=== PATIENT | male | born 1970 | race Caucasian/White ===

== ENCOUNTER 2025-07-28 10:43 | Emergency (ER) | payer OTHER ==
[~2025-07-28] VITALS: Ht 175.3 cm; Wt 90.7 kg
[~2025-07-28 10:43] MED LIST: ACETAMINOPHEN-1 EAC4 PO; AMOX TR-K CLV1 EAC2 PO; DAILY VITAMIN1 EAC4; DOXYCYCLINE HY100 MG PO; LEVOFLOXACIN750 MG PO; MAGNESIUM; METOPROLOL TART25 MG PO; NEURONTIN100 MG PO; POTASSIUM; PRILOSEC10 M1; TYLENOL325 MG PO; ULTRAM 50MG50 MG PO; [UNRECOGNIZED DRUG - OTHER]
[2025-07-28 11:25] VITALS: TEMP 98.7
[2025-07-28] MEDS ORDERED: Morphine 4mg INJECTION 4 MG/ML INJ IV ONE (15:00)
[2025-07-28 16:06] VITALS: PULSE 89; RESP 18
[2025-07-28] MEDS ORDERED: LEVOFLOXACIN250 MG PO (17:40)
[2025-07-28] MEDS ORDERED: DOXYCYCLINE HY100 MG PO (17:40)
[2025-07-28] MEDS: LEVOFLOXACIN 250 MG TAB PO ONE (17:54)
[2025-07-28] MEDS: DOXYCYCLINE HYCLATE TABLET 100 MG TAB PO ONE (17:55)
[2025-07-28 18:02] VITALS: BP 121/68; PULSE 75; RESP 18; TEMP 98.3; O2SAT 98
== END 2025-07-28 15:47 | disposition home or self-care (01) ==
LOC: ER 11:42
DX: L08.9 Local infection of the skin and subcutaneous tissue, unspecified (principal); I10 Essential (primary) hypertension
CPT/HCPCS: 99284